=== PATIENT | female | born 1980 | race Caucasian/White ===

== ENCOUNTER → 2021-05-10 16:13 | Outpatient (CLI) | payer OTHER, SELFPAY ==
[2021-05-13 16:29] LABS: HPV APTIMA, High Risk Negative (Negative)
== END ==
PROVIDERS: Visit Provider Obstetrics & Gynecology
DX: Z12.4 Encounter for screening for malignant neoplasm of cervix (principal)
CPT/HCPCS: 87624; 88175; G0145